=== PATIENT | female | born 1955 | race Caucasian/White ===

== ENCOUNTER → 2017-03-26 | Outpatient (CLI) | payer OTHER ==
[~2017-03-26] MED LIST: ENDOCET 5-3251 EACH PO; Feosol PO; Flonase BOTH NARES; Keflex PO; LIPITOR20 MG PO; LOVENOX40 MG/0.4 SC; Levothroid,Synthroid PO; Paxil PO; [UNRECOGNIZED DRUG - OTHER] PO; [UNRECOGNIZED DRUG - OTHER] PO
== END | disposition home or self-care (01) ==
LOC: RAD 08:16
DX: R19.00 Intra-abdominal and pelvic swelling, mass and lump, unspecified site (principal); R93.5 Abnormal findings on diagnostic imaging of other abdominal regions, including retroperitoneum; E78.00 Pure hypercholesterolemia, unspecified; E03.9 Hypothyroidism, unspecified
CPT/HCPCS: 74177

== ENCOUNTER 2017-04-11 20:52 | Inpatient (IN) | payer OTHER ==
[~2017-04-11] VITALS: Ht 149.9 cm; Wt 83.5 kg
[~2017-04-11 20:52] MED LIST changes: +BUTALB-ASPIRIN1 EACH PO; +CELEBREX200 MG PO; +COZAAR50 MG PO; +IRON325 M1 PO; +PAXIL40 MG PO; +SUPHEDRIN30 MG PO; +SYNTHROID175 MCG PO; +VITAMIN C PO
[2017-04-12 12:33] VITALS: BP 173/92
[2017-04-12 18:06] VITALS: BP 109/56
[2017-04-12 19:05] VITALS: BP 114/68
[2017-04-12 19:58] LABS: HEMATOCRIT 28.3 % (36.0-46.0); MCH 21.4 PG (29.0-34.0); MCHC 29.7 G/DL (30.0-36.0); MCV 72.2 FL (83-99); MEAN PLAT.VOLUME 10.6 uM^3 (9.5-12.4); PLATELET COUNT 362 K/uL (156-360); RBC DIS.WIDTH-CV 18.5 % (11.8-14.6); RBC DIS.WIDTH-SD 47.7 % (39-53); RED BLOOD COUNT 3.92 M/uL (3.80-5.20)
[2017-04-12 20:15] LABS: ANION GAP 7 MEQ/L (2-14); CHLORIDE 105 MEQ/L (99-109); GFR ESTIMATE (CALCULATED) > 59 mL/min/; GLUCOSE 189 mg/dL (70-99); POTASSIUM 3.9 MEQ/L (3.7-5.4); SAMPLE HEMOLYSIS CHECK 0; SAMPLE ICTERIC CHECK 0; SAMPLE LIPEMIA CHECK 0; SODIUM 138 MEQ/L (136-147); UREA NITROGEN (BUN) 13 mg/dL (9-23)
[2017-04-12 23:25] VITALS: BP 133/86
[2017-04-13 03:55] VITALS: BP 129/65
[2017-04-13 07:30] LABS: ANION GAP 7 MEQ/L (2-14); CHLORIDE 104 MEQ/L (99-109); GFR ESTIMATE (CALCULATED) > 59 mL/min/; GLUCOSE 188 mg/dL (70-99); POTASSIUM 4.1 MEQ/L (3.7-5.4); SAMPLE HEMOLYSIS CHECK 0; SAMPLE ICTERIC CHECK 0; SAMPLE LIPEMIA CHECK 0; SODIUM 139 MEQ/L (136-147); UREA NITROGEN (BUN) 10 mg/dL (9-23)
[2017-04-13 07:35] LABS: HEMATOCRIT 26.2 % (36.0-46.0); MCH 20.2 PG (29.0-34.0); MCHC 28.2 G/DL (30.0-36.0); MCV 71.4 FL (83-99); MEAN PLAT.VOLUME 10.6 uM^3 (9.5-12.4); PLATELET COUNT 394 K/uL (156-360); RBC DIS.WIDTH-CV 18.2 % (11.8-14.6); RBC DIS.WIDTH-SD 47.3 % (39-53); RED BLOOD COUNT 3.67 M/uL (3.80-5.20); WHITE BLOOD COUNT 11.1 K/uL (4.1-10.2)
[2017-04-13 08:46] VITALS: BP 120/61
[2017-04-13 13:52] VITALS: BP 163/77
[2017-04-13 15:56] VITALS: BP 137/70
[2017-04-13 19:45] VITALS: BP 118/55
[2017-04-13 23:50] VITALS: BP 111/56
[2017-04-14 07:23] LABS: HEMATOCRIT 25.4 % (36.0-46.0); MCH 21.1 PG (29.0-34.0); MCHC 29.1 G/DL (30.0-36.0); MCV 72.6 FL (83-99); MEAN PLAT.VOLUME 10.4 uM^3 (9.5-12.4); PLATELET COUNT 426 K/uL (156-360); RBC DIS.WIDTH-CV 18.5 % (11.8-14.6); RBC DIS.WIDTH-SD 48.3 % (39-53); WHITE BLOOD COUNT 12.8 K/uL (4.1-10.2)
[2017-04-14 07:36] LABS: ANION GAP 6 MEQ/L (2-14); CHLORIDE 104 MEQ/L (99-109); GFR ESTIMATE (CALCULATED) > 59 mL/min/; GLUCOSE 124 mg/dL (70-99); POTASSIUM 4.1 MEQ/L (3.7-5.4); SAMPLE HEMOLYSIS CHECK 0; SAMPLE ICTERIC CHECK 0; SAMPLE LIPEMIA CHECK 0; SODIUM 141 MEQ/L (136-147); UREA NITROGEN (BUN) 6 mg/dL (9-23)
[2017-04-14 08:03] VITALS: BP 136/66
[2017-04-14] MEDS ORDERED: TRAMADOL HCL50 MG PO (09:20)
== END 2017-04-14 10:35 | disposition home or self-care (01) | DRG 737 ==
LOC: 2SOUTH → ENRESERV 20:52 → 2SOUTH 04-12 09:03 → SDC 04-12 11:00 → EDSTATUS 04-12 11:00 → 2SOUTH 04-12 11:01 → CANRESERV 04-12 15:03 → ENRESERV 04-12 15:03 → 2SOUTH 04-12 15:32 → ENRESERV 04-12 17:17 → 2EAST 04-12 17:51
PROVIDERS: Obstetrics & Gynecology Gynecologic Oncology
DX: C56.1 Malignant neoplasm of right ovary (principal); C79.89 Secondary malignant neoplasm of other specified sites; R18.8 Other ascites; N13.5 Crossing vessel and stricture of ureter without hydronephrosis; D50.9 Iron deficiency anemia, unspecified; I10 Essential (primary) hypertension; E06.3 Autoimmune thyroiditis; E78.00 Pure hypercholesterolemia, unspecified; H91.90 Unspecified hearing loss, unspecified ear; R09.82 Postnasal drip; K59.00 Constipation, unspecified; R11.0 Nausea; Z82.49 Family history of ischemic heart disease and other diseases of the circulatory system; Z96.643 Presence of artificial hip joint, bilateral; F32.9 Major depressive disorder, single episode, unspecified; R63.4 Abnormal weight loss; R53.83 Other fatigue; M81.0 Age-related osteoporosis without current pathological fracture; M19.90 Unspecified osteoarthritis, unspecified site
CPT/HCPCS: 36415; 80048; 85027; 86850; 86870; 86900; 86901; 86920; 86999; 88108; 88160; 88305; 88307; 94760; 94799; J1100; J1170; J1580; J1650; J1885; J2250; J2405; J2710; J2765; J3010; J7050; Q0175; S0030

== ENCOUNTER 2018-02-10 08:11 | Day surgery (SDC) | payer OTHER ==
[~2018-02-10] VITALS: Ht 149.9 cm; Wt 81.6 kg
[~2018-02-10 08:11] MED LIST changes: +ATIVAN0.5 MG PO; +CYANOCOBAL1000 MCG/2 IM; +FOLBEE TABLET1 EACH PO; +PRAVACHOL40 MG PO; +TRAMADOL HCL50 MG PO
[2018-02-10 08:40] VITALS: BP 134/80
[2018-02-10 15:11] VITALS: BP 126/66
[2018-02-10 16:03] VITALS: BP 113/68
[2018-02-10 17:45] VITALS: BP 130/65
== END 2018-02-10 18:46 | disposition home or self-care (01) ==
LOC: SDC 08:11
PROC: 0RRJ0J6 Replacement of Right Shoulder Joint with Synthetic Substitute, Humeral Surface, Open Approach (ICD-10-PCS; principal; 2018-02-10)
DX: M19.011 Primary osteoarthritis, right shoulder (principal); I10 Essential (primary) hypertension; E78.00 Pure hypercholesterolemia, unspecified; E03.9 Hypothyroidism, unspecified; Z85.43 Personal history of malignant neoplasm of ovary; Z88.0 Allergy status to penicillin; Z92.21 Personal history of antineoplastic chemotherapy
CPT/HCPCS: J2250; J2795; J3010; J7050; Q0175